=== PATIENT | female | born 1965 | race Caucasian/White ===

== ENCOUNTER → 2021-11-30 | Outpatient (CLI) | payer MEDICARE ==
[2021-11-30 22:47] LABS: Basophils # (A) 0.04 X 10*3/uL (0.00-0.10); Basophils % (A) 0.6 %; Eosinophils # (A) 0.11 X 10*3/uL (0.04-0.35); Eosinophils % (A) 1.6 %; HCT 41.5 % (37.2-46.3); HGB 12.6 g/dL (12.0-15.0); Immature Grans, Automated 0.3 %; Lymphocytes # (A) 2.75 X 10*3/uL (0.90-5.00); Lymphocytes % (A) 38.8 %; MCH 25.9 pg (27.0-32.0); MCHC 30.4 g/dL (32.0-37.0); MCV 85.4 fL (80.0-97.0); Mean Platelet Volume 11.1 fL (9.5-12.2); Monocytes # (A) 0.53 X 10*3/uL (0.20-1.00); Monocytes % (A) 7.5 %; NRBC Per 100 WBC 0 /100 WBCS (0.0-0.0); Neutrophils # (A) 3.64 X 10*3/uL (1.80-7.70); Neutrophils % (A) 51.2 %; Platelet Count 270 X 10*3/uL (140-440); RBC 4.86 X 10*6/uL (4.10-5.20); RDW 14.6 % (11.5-14.5); WBC 7.09 X 10*3/uL (4.50-10.00)
== END | disposition home or self-care (01) ==
LOC: LABPAT 15:12
PROVIDERS: ATTEND Obstetrics & Gynecology Obstetrics
DX: Z01.812 Encounter for preprocedural laboratory examination (principal); R93.89 Abnormal findings on diagnostic imaging of other specified body structures
CPT/HCPCS: 36415; 85025

== ENCOUNTER → 2022-01-01 | Outpatient (CLI) | payer MEDICARE ==
[2022-01-01 12:35] LABS: Basophils # (A) 0.05 X 10*3/uL (0.00-0.10); Basophils % (A) 0.6 %; Eosinophils # (A) 0.18 X 10*3/uL (0.04-0.35); Eosinophils % (A) 2.3 %; HCT 36.8 % (37.2-46.3); HGB 11.4 g/dL (12.0-15.0); Immature Grans, Automated 0.3 %; Lymphocytes # (A) 2.95 X 10*3/uL (0.90-5.00); Lymphocytes % (A) 38.1 %; MCH 26.1 pg (27.0-32.0); MCV 84.2 fL (80.0-97.0); Mean Platelet Volume 10.8 fL (9.5-12.2); Monocytes # (A) 0.77 X 10*3/uL (0.20-1.00); Monocytes % (A) 9.9 %; NRBC Per 100 WBC 0 /100 WBCS (0.0-0.0); Neutrophils # (A) 3.77 X 10*3/uL (1.80-7.70); Neutrophils % (A) 48.8 %; Platelet Count 244 X 10*3/uL (140-440); RBC 4.37 X 10*6/uL (4.10-5.20); RDW 14.6 % (11.5-14.5); WBC 7.74 X 10*3/uL (4.50-10.00)
== END | disposition home or self-care (01) ==
LOC: LABPAT 08:34
PROVIDERS: ATTEND Obstetrics & Gynecology Obstetrics
DX: Z01.818 Encounter for other preprocedural examination (principal); R93.89 Abnormal findings on diagnostic imaging of other specified body structures
CPT/HCPCS: 85025

== ENCOUNTER 2022-01-03 07:55 | Day surgery (SDC) | payer MEDICARE ==
[2021-12-02 11:17] VITALS: BMI 43.9
--- NOTE | 2021-12-02 14:52 | P.HPOB ---
History of Present Illness H&P Date: 12/02/21 Chief Complaint: PMB, thickened endometrial lining This is a 55 yo female that presents with complaints of PMB. she had an ultrasound revealing a thickened lining. she has had several episodes of bleeding over the last 2 years, moderate bleeding bright red at times. EMB done in the office revealed scant tissue but negative for malignancy. she desires H DC. Review of Systems Constitutional: Denies chills, Denies fatigue, Denies fever Ears, nose, mouth and throat: Denies headache Cardiovascular: Denies leg edema Respiratory: Denies dyspnea Genitourinary: Denies Past Medical History Past Medical History: Fibromyalgia, GERD/Reflux, Osteoarthritis (OA), Sleep Apnea/CPAP/BIPAP Additional Past Medical History / Comment(s): vertigo, Ibs/d ., hx bronchitis, bach pain, post-menopause bleeding. History of Any Multi-Drug Resistant Organisms: None Reported Past Surgical History: Back Surgery Additional Past Surgical History / Comment(s): D & C., lumbar fusion with hardware. Past Anesthesia/Blood Transfusion Reactions: No Reported Reaction Past Psychological History: Anxiety, Panic Disorder Smoking Status: Former smoker Past Alcohol Use History: None Reported Additional Past Alcohol Use History / Comment(s): quit smoking 2005, started smoking age 15, smoked 1-2 ppd. Past Drug Use History: None Reported - Past Family History Mother Family Medical History: Cancer Father Family Medical History: Cancer Medications and Allergies Home Medications Medication Instructions Recorded Confirmed Type Albuterol Inhaler [Ventolin Hfa 1 puff INHALATION RT-QID 12/02/21 12/02/21 History Inhaler] Amitriptyline HCl [Elavil] 150 mg PO HS 12/02/21 12/02/21 History Cholecalciferol [Vitamin D3 (25 50 mcg PO DAILY 12/02/21 12/02/21 History Mcg = 1000 Iu)] Cyanocobalamin (Vitamin B-12) 1,000 mcg PO DAILY 12/02/21 12/02/21 History [Vitamin B-12] Dicyclomine [Bentyl] 20 mg PO BID 12/02/21 12/02/21 History Gabapentin [Neurontin] 400 mg PO TID 12/02/21 12/02/21 History Ibuprofen [Motrin] 800 mg PO BID PRN 12/02/21 12/02/21 History Loperamide [Imodium] 2 mg PO DIRECTED PRN 12/02/21 12/02/21 History Loratadine [Claritin] 10 mg PO DAILY 12/02/21 12/02/21 History Meclizine [Antivert] 25 mg PO BID PRN 12/02/21 12/02/21 History Omeprazole [PriLOSEC] 20 mg PO HS 12/02/21 12/02/21 History Simvastatin [Zocor] 20 mg PO HS 12/02/21 12/02/21 History Venlafaxine HCl ER [Effexor Xr] 75 mg PO HS 12/02/21 12/02/21 History Vitamin C/Biotin [Hair, Skin and 1 tab PO DAILY 12/02/21 12/02/21 History Nails Chew] tiZANidine HCL [Zanaflex] 4 mg PO HS PRN 12/02/21 12/02/21 History Allergies Allergy/AdvReac Type Severity Reaction Status Date / Time Penicillins Allergy Unknown Unknown Verified 12/02/21 10:30 morphine Allergy Nausea & Verified 12/02/21 10:31 Vomiting Exam Osteopathic Statement: *. No significant issues noted on an osteopathic structural exam other than those noted in the History and Physical/Consult. Intake and Output 12/01/21 12/02/21 12/02/21 22:59 06:59 14:59 Other: Weight 108.862 kg gen NAD heart RRR lungs CTA b/l - OBG Physical Exam Abdomen: soft and non tender Abdomen: bowel sounds normal Vulva: left: normal Vagina: normal pink rugated tissue Cervix: no lesion, no discharge Uterus: normal size, normal contour Adnexa: left: normal Anus/Rectum: normal perianal skin Assessment and Plan (1) PMB (postmenopausal bleeding) Status: Acute Code(s): N95.0 - POSTMENOPAUSAL BLEEDING SNOMED Code(s): 13401174 Plan: plan H DC for evaluation of the uterine cavity. surgery reviewed and all questions answered
[~2022-01-03 07:55] MED LIST: DEXAMETHASONE SOD PHOSPHATE 4 MG/ML 1 ML VIAL IV ONE; LACTATED RINGERS 1,000 ML IV SCH; LIDOCAINE 1% (10MG/ML) FOR IV START INTRADERMA PRN; ONDANSETRON 4 MG/2 ML VIAL IVP ONE; Pre Op ABX Message 1 EACH MISC MISCELLANE ONE; SCOPOLAMINE 1 MG/72 HR PATCH TRANSDERM ONE; fentaNYL (PF) 50 MCG/ML 2 ML AMP IV PRN
[2022-01-03] MEDS ORDERED: SUCCINYLCHOLINE CHLORIDE VIAL 200 MG/10 ML VIAL IV ONE (09:26)
[2022-01-03] MEDS ORDERED: fentaNYL (PF) 50 MCG/ML 2 ML AMP ONE (09:26)
[2022-01-03] MEDS ORDERED: KETOROLAC 15 MG/ML 1 ML VIAL ONE (09:26)
[2022-01-03] MEDS ORDERED: ALBUTEROL HFA INHALER INHALATION ONE (09:26)
[2022-01-03] MEDS ORDERED: PROPOFOL 10 MG/ML 20 ML VIAL IV ONE (09:26)
[2022-01-03] MEDS ORDERED: LIDOCAINE 2% INJ 20 MG/ML (2 ML VIAL) ONE (09:26)
[2022-01-03] MEDS ORDERED: MIDAZOLAM 2 MG/2 ML VIAL ONE (09:26)
--- NOTE | 2022-01-03 10:45 | P.HPOB ---
History of Present Illness H&P Date: 01/03/22 Chief Complaint: PMB, thickened endometrium 56-year-old female that was seen with complaints of postmenopausal bleeding. Ultrasound revealing a thickened lining. Patient states she has had several episodes of bleeding over the last 2 years moderate bright red at times. E ndometrial biopsy was performed in the office revealing scant tissue but negative for malignancy. Patient remains concerned and desires hysteroscopy with dilation and curettage. Review of Systems Constitutional: Denies chills, Denies fatigue, Denies fever Ears, nose, mouth and throat: Denies headache Cardiovascular: Reports leg edema Respiratory: Denies dyspnea Gastrointestinal: Denies nausea, Denies vomiting Genitourinary: Denies Menstruation: Reports postmenopausal Past Medical History Past Medical History: Fibromyalgia, GERD/Reflux, Osteoarthritis (OA), Sleep Apnea/CPAP/BIPAP Additional Past Medical History / Comment(s): vertigo, Ibs/d ., hx bronchitis, bach pain, post-menopause bleeding. History of Any Multi-Drug Resistant Organisms: None Reported Past Surgical History: Back Surgery Additional Past Surgical History / Comment(s): D & C., lumbar fusion with hardware. Past Anesthesia/Blood Transfusion Reactions: No Reported Reaction Past Psychological History: Anxiety, Panic Disorder Smoking Status: Former smoker Past Alcohol Use History: None Reported Additional Past Alcohol Use History / Comment(s): quit smoking 2005, started smoking age 15, smoked 1-2 ppd. Past Drug Use History: None Reported - Past Family History Mother Family Medical History: Cancer Father Family Medical History: Cancer Medications and Allergies Home Medications Medication Instructions Recorded Confirmed Type Amitriptyline HCl [Elavil] 150 mg PO HS 12/02/21 12/30/21 History Cholecalciferol [Vitamin D3 (25 50 mcg PO DAILY 12/02/21 12/30/21 History Mcg = 1000 Iu)] Cyanocobalamin (Vitamin B-12) 1,000 mcg PO DAILY 12/02/21 12/30/21 History [Vitamin B-12] Dicyclomine [Bentyl] 20 mg PO BID 12/02/21 12/30/21 History Gabapentin [Neurontin] 400 mg PO TID 12/02/21 12/30/21 History Ibuprofen [Motrin] 800 mg PO BID PRN 12/02/21 12/30/21 History Loperamide [Imodium] 2 mg PO DIRECTED PRN 12/02/21 12/30/21 History Loratadine [Claritin] 10 mg PO DAILY 12/02/21 12/30/21 History Meclizine [Antivert] 25 mg PO BID PRN 12/02/21 12/30/21 History Omeprazole [PriLOSEC] 20 mg PO HS 12/02/21 12/30/21 History Simvastatin [Zocor] 20 mg PO HS 12/02/21 12/30/21 History Venlafaxine HCl ER [Effexor Xr] 75 mg PO HS 12/02/21 12/30/21 History Vitamin C/Biotin [Hair, Skin and 1 tab PO DAILY 12/02/21 12/30/21 History Nails Chew] tiZANidine HCL [Zanaflex] 4 mg PO HS PRN 12/02/21 12/30/21 History Allergies Allergy/AdvReac Type Severity Reaction Status Date / Time Penicillins Allergy Unknown Unknown Verified 12/30/21 15:08 morphine Allergy Nausea & Verified 12/30/21 15:08 Vomiting Exam Osteopathic Statement: *. No significant issues noted on an osteopathic struc tural exam other than those noted in the History and Physical/Consult. Vital Signs Temp Pulse Resp BP Pulse Ox 01/03/22 08:31 97.8 F 86 20 137/80 96 Intake and Output 01/02/22 01/03/22 01/03/22 22:59 06:59 14:59 Intake Total 700 Output Total 55 Balance 645 Intake: IV 700 Output: Urine 50 Estimated Blood Loss 5 Other: Weight 110.6 kg Targeted physical exam is performed in general this a well-nourished well- developed non female in no acute distress, breathing is noted to nonlabored, heart has a regular rate and rhythm, lungs are noted to be clear to auscultation bilaterally. Abdomen is obese, genitourinary exam reveals normal external genitalia with no lesions of the vaginal mucosa is noted to be well rugated no lesions are appreciated the cervix is nulliparous and without concern the uterus is normal in size and mobile the adnexa is difficult to be palpated secondary to patient's body habitus. Assessment and Plan (1) PMB (postmenopausal bleeding) Current Visit: No Status: Acute Code(s): N95.0 - POSTMENOPAUSAL BLEEDING SNOMED Code(s): 19990211 (2) Thickened endometrium Current Visit: Yes Status: Acute Code(s): R93.89 - ABNORMAL FINDINGS ON DX IMAGING OF OTH BODY STRUCTURES SNOMED Code(s): 209353598 Plan: 56-year-old female with concerns of bleeding and thickened endometrium on ultrasound. Nondiagnostic endometrial biopsy in the office. Patient desires hysteroscopy, dilation and curettage for further evaluation of the endometrial cavity. We'll plan hysteroscopy dilation and curettage. Procedures reviewed and questions are answered. All risks are explained patient including uterine perforation and bleeding. Patient states understanding and wishes to proceed.
[2022-01-03 10:54] VITALS: TEMP 96.9
--- NOTE | 2022-01-03 10:59 | P.OP ---
Date of Procedure: 01/03/22 Preoperative Diagnosis: Thickened endometrium on ultrasound, postmenopausal bleeding Postoperative Diagnosis: Same Procedure(s) Performed: , Dilation and curettage Anesthesia: SANIA Surgeon: Farrah Good Estimated Blood Loss (ml): 5 Urine output (ml): 50 Pathology: other (Endometrial curettings) Condition: stable Disposition: PACU Indications for Procedure: Thickened endometrium, nondiagnostic endometrial biopsy performed in the office Operative Findings: Normal uterine size, suspected Asherman's within the endometrial cavity. Normal appearing tissue. Description of Procedure: Patient was taken back to the operating suite where general anesthesia was obtained without difficulty by the anesthesia department. She was then prepped and draped in normal sterile fashion in the dorsal lithotomy position. A red rubber catheter was used to drain the bladder clear yellow urine. The weighted speculum was placed in the posterior vaginal vault the interval of the cervix was visualized and grasped with a single-tooth tenaculum. The endocervical canal was then serially dilated. The hysteroscope was placed through the cervix and toward the endometrial cavity, an intact cavity was appreciated. Question will Asherman syndrome was appreciated with scarring noted from the anterior posterior uterine meza. Normal-appearing endometrial cavity was appreciated. Pictures were taken and the hysteroscope was removed. A sharp curettage was then performed until gritty texture was noted, multiple fragments of tissue were appreciated. At this time the single tooth tenaculum was taken off of the anterior lip of the cervix, hemostasis was appreciated. All counts reported correct 2 at the end of the procedure. Patient tolerated procedure well and was taken the recovery room awake in stable condition.
[2022-01-03 11:34] VITALS: RESP 16
[2022-01-03 11:57] VITALS: BP 128/61; PULSE 73
== END 2022-01-03 12:14 | disposition home or self-care (01) ==
LOC: OR 07:55
PROVIDERS: ATTEND Obstetrics & Gynecology Obstetrics
DX: N95.0 Postmenopausal bleeding (principal); R93.89 Abnormal findings on diagnostic imaging of other specified body structures; N84.0 Polyp of corpus uteri; M79.7 Fibromyalgia; K21.9 Gastro-esophageal reflux disease without esophagitis; G47.33 Obstructive sleep apnea (adult) (pediatric); M19.90 Unspecified osteoarthritis, unspecified site; M54.9 Dorsalgia, unspecified; F41.9 Anxiety disorder, unspecified; F41.0 Panic disorder [episodic paroxysmal anxiety]; Z98.890 Other specified postprocedural states; Z98.1 Arthrodesis status; Z87.891 Personal history of nicotine dependence; Z79.899 Other long term (current) drug therapy; Z88.5 Allergy status to narcotic agent; Z88.0 Allergy status to penicillin
CPT/HCPCS: 88305; 58558; J2250; J0330; J1100; J2405; J3010; J1885; J2704; J2001

== ENCOUNTER → 2022-07-25 | Outpatient (CLI) | payer MEDICARE ==
--- NOTE | 2022-07-25 09:22 | MR ---
EXAMINATION TYPE: MR knee RT wo con DATE OF EXAM: 07/25/2022 COMPARISON: Outside right knee x-rays June 16, 2022 HISTORY: RIGHT KNEE PAIN TECHNIQUE: Multiplanar, multisequence images of the knee is performed without IV contrast. FINDINGS: MEDIAL MENISCUS: Oblique increased signal posterior horn extends to inferior articular surface sagitt al image 9 through 11. LATERAL MENISCUS: Anterior and posterior horns are intact without tear. CRUCIATE LIGAMENTS: The anterior and posterior cruciate ligaments are intact and unremarkable. COLLATERAL LIGAMENTS: The medial collateral ligament and lateral collateral ligament complex are inta ct and unremarkable. EXTENSOR MECHANISM: Visualized quadriceps and patellar tendons are intact. EFFUSION: There is small to moderate size suprapatellar joint effusion. POPLITEAL CYST: No popliteal/murray cyst. TRICOMPARTMENT SPACES: Mild/moderate tricompartment joint space loss with mild spurring CARTILAGE: Chondromalacia patella with full-thickness cartilaginous loss along the posterior patellar pole. Some cartilaginous loss medial tibiofemoral compartment. BONE MARROW SIGNAL: There are some areas of heterogeneous increased T2 signal along the posterior pat isreal that are present. OTHER: No additional significant abnormality is appreciated. IMPRESSION: 1. Oblique full-thickness tear posterior horn medial meniscus. 2. Tricompartment degenerative changes greatest patellofemoral compartment as detailed above. 3. Small to moderate-size suprapatellar joint effusion.
== END | disposition home or self-care (01) ==
LOC: RADMRIMAIN 05:43
PROVIDERS: ATTEND Orthopaedic Surgery
DX: M23.322 Other meniscus derangements, posterior horn of medial meniscus, left knee (principal); M25.461 Effusion, right knee; M17.11 Unilateral primary osteoarthritis, right knee

== ENCOUNTER → 2022-11-25 | Outpatient (CLI) | payer MEDICARE ==
--- NOTE | 2022-11-25 11:35 | CT ---
EXAMINATION TYPE: CT angio chest CT DLP: 1300.9 mGycm, Automated exposure control for dose reduction was used. DATE OF EXAM: 11/25/2022 11:26 AM COMPARISON: None CLINICAL INDICATION:Female, 56 years old with history of R06.02; SOB post covid TECHNIQUE/CONTRAST: CTA scan of the thorax is performed without and with IV Contrast, patient injected with 100 mL of Iso baylee 300, pulmonary embolism protocol. MIP images are created and reviewed. FINDINGS: Pulmonary Artery: There is no evidence for a filling defect within the pulmonary vasculature to sugge st acute pulmonary embolism. The pulmonary artery is of normal size. Lungs/Pleura: No evidence of focal consolidation, pleural effusion or pneumothorax. Left lower lobe 4 mm groundglass pulmonary nodule (series 4, image 33). Airway: Large airways are patent. Heart: Heart is within normal limits for size.. Vasculature: No evidence of aortic aneurysm. Mediastinum: No evidence of adenopathy. Musculoskeletal: No acute osseous abnormalities Soft Tissues: Unremarkable. Lower neck: No significant findings. Upper Abdomen: Cholelithiasis. Hepatic steatosis. IMPRESSION: 1. No evidence of pulmonary embolism or acute thoracic process. 2. Left lower lobe 4 mm groundglass pulmonary nodule. No follow-up is recommended. 3. Cholelithiasis. 4. Hepatic steatosis.
== END | disposition home or self-care (01) ==
LOC: RADCTMAIN 10:49
PROVIDERS: ATTEND Family Medicine
DX: K80.20 Calculus of gallbladder without cholecystitis without obstruction (principal); K76.0 Fatty (change of) liver, not elsewhere classified; R91.1 Solitary pulmonary nodule
CPT/HCPCS: 71275; Q9967